=== PATIENT | female | born 1965 | race Caucasian/White ===

== ENCOUNTER 2023-06-11 09:07 | Day surgery (SDC) | payer BC ==
[~2023-06-11 09:07] MED LIST: Lactated Ringers 1,000 ML IV SCH; Sodium Chloride 0.9% 10 ML Syringe FLUSH PRN; Sodium Chloride 0.9% 10 ML Syringe FLUSH SCH
[2023-06-11] MEDS ORDERED: Propofol 200 MG/20 ML SDV ONE ×2 (10:18→10:50)
[2023-06-11] MEDS ORDERED: Lidocaine 1% 4 ML ONE (10:18)
[2023-06-11] MEDS ORDERED: fentaNYL 100 MCG/2 ML SDV ONE (10:18)
[2023-06-11] MEDS ORDERED: Ondansetron 4 MG/2 ML SDV ONE (10:46)
== END 2023-06-11 11:43 | disposition home or self-care (01) ==
LOC: JD.SDS 09:07
PROVIDERS: ATTEND Surgery
DX: Z12.11 Encounter for screening for malignant neoplasm of colon (principal); K57.30 Diverticulosis of large intestine without perforation or abscess without bleeding; F41.9 Anxiety disorder, unspecified; I10 Essential (primary) hypertension; E78.00 Pure hypercholesterolemia, unspecified; E03.9 Hypothyroidism, unspecified; Z79.82 Long term (current) use of aspirin; Z79.890 Hormone replacement therapy; Z79.1 Long term (current) use of non-steroidal anti-inflammatories (NSAID); Z79.899 Other long term (current) drug therapy; Z87.891 Personal history of nicotine dependence
CPT/HCPCS: 45378; J2405; J2704; J3010; J7120; J3490

== ENCOUNTER 2024-01-21 07:15 | Day surgery (SDC) | payer BC ==
[~2024-01-21 07:15] MED LIST changes: -Lactated Ringers 1,000 ML IV SCH
[2024-01-21] MEDS: Lactated Ringers 1,000 ML IV SCH (07:30)
[2024-01-21] MEDS ORDERED: Ondansetron 4 MG/2 ML SDV ONE ×2 (08:48→09:58)
[2024-01-21] MEDS ORDERED: Propofol 200 MG/20 ML SDV ONE (08:49)
[2024-01-21] MEDS ORDERED: Midazolam 1 MG/ML 2 ML SDV ONE (08:49)
[2024-01-21] MEDS ORDERED: ePHEDrine 50 MG/ML SDV ONE (09:11)
[2024-01-21] MEDS ORDERED: Dexamethasone 4 MG/ML 5 ML MDV ONE (09:11)
[2024-01-21] MEDS ORDERED: ceFAZolin 2 GM Vial ONE (09:11)
[2024-01-21] MEDS ORDERED: HYDROmorphone 0.5 MG/0.5 ML Syringe IVPUSH PRN (09:17)
[2024-01-21] MEDS ORDERED: fentaNYL 100 MCG/2 ML SDV IVPUSH PRN (09:17)
[2024-01-21] MEDS ORDERED: Phenylephrine 1% 10 MG/ML SDV ONE (09:30)
[2024-01-21] MEDS ORDERED: fentaNYL 250 MCG/5 ML SDV ONE (09:34)
[2024-01-21] MEDS ORDERED: Lactated Ringers 1,000 ML ONE (09:37)
[2024-01-21] MEDS ORDERED: Ketorolac 30 MG/ML SDV ONE (10:04)
[2024-01-21] MEDS: Morphine 8 MG, EPINEPHrine 0.3 MG, Cefuroxime 750 MG, Ketorolac 30 MG, Sodium Chloride ... PRN (10:04)
[2024-01-21] MEDS: Vancomycin 1 GM SDV ONE (10:05)
[2024-01-21] MEDS: Tranexamic Acid 1,000 MG/10 ML Vial ONE (10:05)
[2024-01-21] MEDS: Acetaminophen/HYDROcodone 325-5 MG Tab PO PRN (11:59)
[2024-01-21] MEDS: Ondansetron 4 MG/2 ML SDV IVPUSH PRN (13:55)
== END 2024-01-21 14:18 | disposition home or self-care (01) ==
LOC: JD.SDS 07:15
PROVIDERS: ATTEND Orthopaedic Surgery
DX: M16.12 Unilateral primary osteoarthritis, left hip (principal); I10 Essential (primary) hypertension; E78.00 Pure hypercholesterolemia, unspecified; E03.9 Hypothyroidism, unspecified; Z87.891 Personal history of nicotine dependence; Z79.82 Long term (current) use of aspirin; Z79.890 Hormone replacement therapy; Z79.899 Other long term (current) drug therapy
CPT/HCPCS: 0055T; 27130; 36415; 73501; 86850; 86900; 86901; 97110; 97161; A9270; C1713; C1776; J0171; J0690; J0697; J1100; J1885; J2250; J2270; J2371; J2405; J2704; J3010; J3370; J7120; 01214; J3490